=== PATIENT | female | born 1945 | race Caucasian/White ===

== ENCOUNTER 2016-11-09 16:26 | Emergency (ER) | payer MEDICARE ==
[~2016-11-09] VITALS: Ht 157.5 cm; Wt 47.2 kg
[2016-11-09 16:36] VITALS: BP 136/65
--- NOTE | 2016-11-09 17:24 | RAD ---
Exam performed: CT scan of the head without contrast. Date of Service: 11/09/16. Comparison: None available. Clinical History: Trauma, patient hit right side of the head status post fall. Technique: Helical acquisitions are obtained from the foramen magnum to the vertex without intravenous administration of contrast. Findings: The ventricles are midline without evidence of dilatation. Mild age related atrophy is seen. Normal romero-white differentiation is maintained. There is no extra axial fluid collection, intraparenchymal hemorrhage or mass lesion. The visualized portions of the orbits, paranasal sinuses and the mastoid air cells appear clear. The calvarium is intact. Impression: 1. No acute intracranial process detected. 2. Mild age related atrophy is seen. PQRS Compliance Statement: One or more of the following individualized dose reduction techniques were utilized for this examination: 1. Automated exposure control 2. Adjustment of the mA and/or kV according to patient size 3. Use of iterative reconstruction technique
--- NOTE | 2016-11-10 00:17 | PHYS DOC ---
Past Medical History Past Medical History: No Pertinent History Past Surgical History: Appendectomy, Hysterectomy Alcohol Use: None Drug Use: None Adult General Chief Complaint Chief Complaint: SHOULDER INJURY [facility] Patient is a 71 yearold female who presents with right shoulder injury secondary to accidental fall. She reports generalized weakness which she has had for the past several months currently being worked up by her neurologist. Patient reports hitting her head, denies headache and neck pain. She is not on anticoagulation therapy. Review of Systems Review of Systems ROS as per [facility] Allergies Allergies Allergies Coded Allergies Type Severity Reaction Last Updated Verified Penicillins Allergy Intermediate 11/09/16 Yes Physical Exam Physical Exam Constitutional: Well developed, well nourished, no acute distress, non-toxic appearance. HENT: Normocephalic, atraumatic, bilateral external ears normal, oropharynx moist, no oral exudates, nose normal. Eyes: PERRLA, EOMI. Neck: Normal range of motion, no tenderness, supple, no stridor. Cardiovascular:Heart rate regular rhythm, no murmur [] Lungs & Thorax: Bilateral breath sounds clear to auscultation [] Abdomen: Bowel sounds normal, soft, no tenderness, no masses, no pulsatile masses. [] Skin: Warm, dry, no erythema, no rash. [] Back: No tenderness, no CVA tenderness. [] Extremities: R Shoulder, no deformity, mild swelling.. Pain with range of motion. Neurologic: Alert and oriented X 3, normal motor function, normal sensory function, no focal deficits noted. [] Psychologic: Affect normal, judgement normal, mood normal. [] Current Patient Data Vital Signs Vital Signs Date Time Temp Pulse Resp B/P (MAP) Pulse Ox O2 Delivery O2 Flow Rate FiO2 11/09/16 16:36 97.7 60 16 136/65 (88) 94 Room Air 97.7 EKG EKG [] Radiology/Procedures Radiology/Procedures [CT head: NAD R shoulder: R humeral head fx Impressions: R shoulder fx Course & Med Decision Making Course & Med Decision Making Pertinent Labs and Imaging studies reviewed. (See chart for details) [Patient placed in sling. CT head negative. Patient declines further w/u and request dc home Dragon Disclaimer Dragon Disclaimer This electronic medical record was generated, in whole or in part, using a voice recognition dictation system. Departure Departure Impression: Primary Impression: Shoulder fracture, right Disposition: HOME, SELF-CARE Condition: GOOD Referrals: SHARMIN NAIR MD Patient Instructions: Shoulder Fracture Additional Instructions: Please wear shoulder sling. Take Tylenol for pain and tramadol as needed for additional relief. Follow-up with on-call orthopedic surgeon and will 3-5 days and with your PCP early next week. Return to the ED if new or worsening symptoms. CHERY CERON DO November 10, 2016 00:17
--- NOTE | 2016-11-10 07:39 | RAD ---
Exam performed: 3 views right shoulder. History: Right shoulder pain, status post fall today. Date of service: 11/09/16. Comparison: None available 3 views right shoulder findings: There is a comminuted somewhat impacted fracture right proximal humerus. The glenohumeral and acromioclavicular joints are preserved. The visualized portion of the right lung is clear. Impression: Comminuted impacted fracture right proximal humerus.
--- NOTE | 2016-11-10 07:40 | RAD ---
Indication: Trauma, fall with right-sided pain. Time of exam 1720 hours. No prior studies are available for comparison. The heart size is normal. The lungs are hyperinflated consistent with COPD. No parenchymal contusion is identified. No effusion or pneumothorax is identified. No fractures are seen. There is some scarring or atelectasis in the left base. Impression: COPD and left basilar atelectasis or scarring. No other abnormalities seen.
--- NOTE | 2016-11-10 14:14 | PDOC2 ---
NEUROLOGY CONSULT Date of Admission Date of Admission DATE: 11/10/16 TIME: 13:44 Reason for Consult Reason for Consult: Neurology Consultation 11-09-2016 IMPRESSION: LE weakness for 2 to 3 months. Falls Right shoulder pain after falling. Acute comminuted impacted fracture at right proximal humerus. Peripheral neuropathy. COPD Smoking, longstanding history. RECOMMENDATIONS/PLAN: Right shoulder X-Ray, performed. C/T spine MRI. CXR Neurontin. Lab: see orders. OT/PT CXR: COPD. No mass or cancer seen. Right shoulder X-ray: fracture described as above. HISTORY OF THE PRESENT ILLNESS: 71-y-old female patient with above medical diseases had falls recently. She stated that she had neuropathy in her legs and she felt weakness in her legs so she fell. She hurt her head but no obvious injuries nor LOC. She also hurt her right shoulder once but had another fall and hurt the same shoulder again on 11/09, so she was sent to ER from [facility] after her fall. She was examed by Neurology sales operations coordinator physician in the ER. Admission for further evaluation in the hospital was discussed with her but she wanted to go home. She said she already discussed with ER physician that she can use splint for her right arm and her son can take care of her at home. If she is persistent to go home, she needs to follow up with Dr. Rosario in [facility] for further evaluation. PAST MEDICAL HISTORY: Please see above. PAST SURGERY HISTORY: Appendectomy Hysterectomy ALLERGY: Reviewed. MEDICATIONS: Refer to [facility] FAMILY HISTORY: Non contributory. SOCIAL HISTORY: Lives at home with her son. Denies illicit drug use. She smokes 1 pack of cigarettes a day for about 40 years. She drinks alcohol occasionally. REVIEW OF SYSTEMS: Constitutional: No cachexia. Head: Head soft tissue injury from falls. Skin: No edema, or rash. Ear: No infection. Eyes: No vision loss or color blindness. Nose: No bleeding or purulent discharges. Hearing: No hearing decrease. Neck: No traumatic injury. Breast: No history of cancer, masses,or discharges. Cardiac: No VT. Pulmonary: COPD. GI: No GI ulcer, GI bleeding. Urinary/genital: UTI. Endocrinologic: No cousin face, craniofacial dysmorphism, polydactyly. Skeletomuscular: LE weakness since 08/20. Neurological: see HP. Psychiatric: Denies drug use/abuse. Otherwise, not [id number] review of systems. PHYSICAL EXAMINATION: General appearance is in subacute distress. HEENT: Normocephalic and nontraumatic. Eyes, nose, ears, and throat are unremarkable. Neck is supple. No lymphadenopathy. No crepitus. Cardiovascular: S1, S2, regular rate and rhythm. Pulmonary: Clear to auscultation bilaterally. Abdomen: Bowel sounds are positive. Abdomen is soft, nontender, and nondistended. Extremities: No rash, lesions, or edema. Restriction of range of motion in right UE after falling. NEUROLOGICAL EXAMINATION: Alert Oriented to time, place and person. PERRL. EOMI. CN: no focal findings. Muscle tone: within normal. Muscle strength: 5, unwilling to move right proximal UE but can move distally. DTR: 2 Plantar reflex: Flexor response bilaterally Gait: not examined in bed. Sensory exam: no abnormal findings except tender to touch in right shoulder area. No obvious cerebellar signs elicited. F-T-N test fine in left hand. Unable to perform the test in right hand due to pain in right should area. Allergies Allergies: Coded Allergies: Penicillins (Verified Allergy, Intermediate, 11/09/16) Vitals VITALS Vital Signs Date Time Temp Pulse Resp B/P (MAP) Pulse Ox O2 Delivery O2 Flow Rate FiO2 11/09/16 16:36 97.7 60 16 136/65 (88) 94 Room Air 97.7 JESSY BROOKS MD November 10, 2016 14:14
== END 2016-11-09 18:25 | disposition home or self-care (01) ==
LOC: ER 16:26
DX: S42.291A Other displaced fracture of upper end of right humerus, initial encounter for closed fracture (principal); R53.1 Weakness; G62.9 Polyneuropathy, unspecified; J44.9 Chronic obstructive pulmonary disease, unspecified; F17.210 Nicotine dependence, cigarettes, uncomplicated; Z88.0 Allergy status to penicillin; W01.10XA Fall on same level from slipping, tripping and stumbling with subsequent striking against unspecified object, initial encounter; Y93.89 Activity, other specified; Y92.89 Other specified places as the place of occurrence of the external cause; Y99.8 Other external cause status
CPT/HCPCS: 70450; 71010; 73030; 99284-25